=== PATIENT | male | born 1955 | race Caucasian/White ===

== ENCOUNTER 2019-04-20 18:31 | Inpatient (IN) | payer OTHER ==
[~2019-04-20] VITALS: Ht 195.6 cm; Wt 114.0 kg
[2019-04-20 18:52] LABS: HEMATOCRIT 39.6 % (42.0-52.0); HEMOGLOBIN 13.8 g/dl (13.5-18.0); MEAN CELL VOLUME 95 fl (80.0-100.0); MEAN CORPUSCULAR HEMOGLOBIN 33 pg (27.0-31.0); MEAN CORPUSCULAR HGB CONC 35 g/dl (33.0-37.0); MEAN PLATELET VOLUME 11.1 fl (7.4-10.4); PLATELET COUNT 143 K/mm3 (130-400); RED BLOOD COUNT 4.17 M/mm3 (4.20-5.60); REDCELL DISTRIBUTION WIDTH-CV 12.2 % (11.5-14.5)
[2019-04-20 18:59] LABS: ALBUMIN 4.3 gm/dL (3.5-5.0); CALCIUM 8.7 mg/dL (8.4-10.2); CREATININE, serum 0.92 (0.66-1.25); POTASSIUM 4.1 mmol/L (3.4-5.0); TOTAL PROTEIN 8.1 gm/dL (6.4-8.2)
[2019-04-20 19:21] LABS: BAND 3 % (0-10); EOSINOPHIL 4 % (0-4); LYMPHOCYTE 36 % (20.0-51.0); METAMYELOCYTE 1 % (0-0); NEUTROPHILS 47 % (42.0-75.2)
[2019-04-20 19:22] LABS: PLATELET ESTIMATE NORMAL (NORMAL)
[2019-04-20 20:29] LABS: COLLECTION METHOD CLEAN CATCH
[2019-04-20 20:36] LABS: PH 6 (5-8); SQUAMOUS EPITHELIAL 0-2 /hpf; URINE APPEARANCE Clear; URINE BACTERIA Rare /hpf; URINE BILIRUBIN Negative (NEGATIVE); URINE BLOOD 1+ (NEGATIVE); URINE COLOR Yellow; URINE GLUCOSE 1+ (NEGATIVE); URINE KETONE Negative (NEGATIVE); URINE LEUKOCYTE ESTERASE Negative (NEGATIVE); URINE NITRATE Negative (NEGATIVE); URINE PROTEIN(semi-quant) Negative (NEGATIVE); URINE RBC 0-2 /hpf; URINE UROBILINOGEN Negative (NEGATIVE)
[2019-04-20 23:44] VITALS: BP 192/96; PULSE 97; TEMP 97.4
[2019-04-21] VITALS (9 sets, daily range): BP systolic 142–209; BP diastolic 82–102; PULSE 72–116; TEMP 97.4–98.4
--- NOTE | 2019-04-21 00:54 | NUR ---
Patient up to room 324 at 2343. transferred to bed via slidboard. alert and oriented. answers questions appropriately. BP elevated 190/90, retaken manually 142/90. attempted to consult hospitalist. c/o moderate pain 6/10 to back, denies need for pain medication at this time. patient had 50 ml emesis, prn zofran given. IVF infusing into R FA IV. no further needs at this time. will continue to monitor.
[2019-04-21] MEDS ORDERED: ASPIRIN 32325 MG/TAB PO (03:50)
[2019-04-21 04:25] LABS: CALCIUM 8.1 mg/dL (8.4-10.2); CREATININE, serum 0.75 (0.66-1.25); MAGNESIUM 1.4 mg/dL (1.6-2.3); PHOSPHOROUS 3.2 mg/dL (2.5-4.5); POTASSIUM 4.4 mmol/L (3.4-5.0)
[2019-04-21 04:56] LABS: TSH w REFLEX 3.1 uIU/mL (0.465-4.680)
[2019-04-21 07:24] LABS: CALCIUM 7.9 mg/dL (8.4-10.2); CHOLESTEROL RISK RATIO 2.5; CREATININE, serum 0.69 (0.66-1.25); POTASSIUM 4.1 mmol/L (3.4-5.0)
[2019-04-21 07:57] LABS: PATHOLOGY DIFF REVIEW OK
--- NOTE | 2019-04-21 08:21 | NUR ---
Assessment completed, alert/oriented, blood pressure elvated/ VS stable otherwise, he is reporting Nausea/vomitting and moderate low back pain, stated pain meds will make Nausea worse and just wanted Nausea medicaiton for now, I gave 4mg IV Zofran, patient also having visible and significant tremors/ insomnia/ elvated B/P and no appetite, this scored him at a 7 on the ETOH detox protocol, he is voiding urine witout any difficulty, we are giving IVF and replacing eletrolyes, he denies other needs at this time, will continue to monitor
[2019-04-21 09:54] LABS: CALCIUM 7.9 mg/dL (8.4-10.2); CREATININE, serum 0.67 (0.66-1.25); POTASSIUM 4.1 mmol/L (3.4-5.0)
[2019-04-21 11:55] LABS: CREATININE, serum 0.66 (0.66-1.25)
[2019-04-21 13:53] LABS: CALCIUM 7.8 mg/dL (8.4-10.2); CREATININE, serum 0.69 (0.66-1.25)
[2019-04-21 15:16] LABS: CALCIUM 7.9 mg/dL (8.4-10.2); CREATININE, serum 0.66 (0.66-1.25); POTASSIUM 3.7 mmol/L (3.4-5.0)
--- NOTE | 2019-04-21 15:59 | NUR ---
Bulk Delivery Driver met with patient to discuss discharge planning. Patient lives alone in [place]. Patient reports he does not have a current primary care physician but saw Dr. Bobo a few years ago. AISLINN provided list of primary care providers in [place]. Patient obtains medications from [facility] pharmacy. Patient reports he has Medicare although he is showing up as self pay on SW's census. AISLINN consulted Griselda, Financial Counselor who advised she found patient did not have active Medicare coverage. Griselda advised she plans to meet with patient in the morning as patient was asleep when she attempted to meet with him. Patient states he only drinks about 3-4 beers at a time but does not drink every day. Patient states he sometimes goes two weeks without drinking. Patient denies need for AA or treatment. Patient states he has a busted wheelchair at home and was independent with ADLS prior to his fall. Patient does not have DPOA-HC but states he has a sister, Naty (ph#[phone]). AISLINN attended clinical rounds with the team and Hospitalist addressed alcohol use with patient. Patient again states he only has about 3-4 12 oz beers when he drinks but that he can cut back if needed. AISLINN spoke with PT, Elaine who advised at this point she would not recommend home for patient. SW to continue to follow to ensure safe discharge.
[2019-04-21 17:34] LABS: CALCIUM 7.8 mg/dL (8.4-10.2); CREATININE, serum 0.67 (0.66-1.25); POTASSIUM 3.8 mmol/L (3.4-5.0)
--- NOTE | 2019-04-21 19:30 | NUR ---
PATIENT RESTING IN BED DURING CHANGE OF SHIFT REPORT FROM DAY SHIFT NURSE. PATIENT WITH NO C/O OR NEEDS REPORTED.
[2019-04-22] VITALS (12 sets, daily range): BP systolic 115–194; BP diastolic 59–156; PULSE 67–82; TEMP 97.2–99.5
[2019-04-22 01:03] LABS: CREATININE, serum 0.76 (0.66-1.25); POTASSIUM 3.9 mmol/L (3.4-5.0)
--- NOTE | 2019-04-22 01:30 | NUR ---
PATIENT RESTING WITH EYES CLOSED, DOES NOT AWAKEN WHEN DOOR TO ROOM OPENED. BREATHING NONLABORED AND EVEN.
[2019-04-22 06:42] LABS: BASO % 0.8 % (0.0-2.0); EOS # 0.1 (0.0-0.7); EOS % 1.3 % (0-4.0); GRAN % 76.7 % (42.2-75.2); HEMOGLOBIN 12.4 g/dl (13.5-18.0); LYMPH # 0.6 (1.2-3.4); LYMPH % 10.9 % (20.0-51.0); MEAN CELL VOLUME 96 fl (80.0-100.0); MEAN CORPUSCULAR HEMOGLOBIN 33 pg (27.0-31.0); MEAN CORPUSCULAR HGB CONC 34 g/dl (33.0-37.0); MEAN PLATELET VOLUME 11.9 fl (7.4-10.4); MONO # 0.5 (0.1-0.6); MONO % 9.9 % (1.7-9.3); PLATELET COUNT 112 K/mm3 (130-400); RED BLOOD COUNT 3.78 M/mm3 (4.20-5.60); REDCELL DISTRIBUTION WIDTH-CV 12.1 % (11.5-14.5)
[2019-04-22 06:51] LABS: CALCIUM 8.3 mg/dL (8.4-10.2); CREATININE, serum 0.81 (0.66-1.25); POTASSIUM 3.7 mmol/L (3.4-5.0)
[2019-04-22 06:55] LABS: HEMATOCRIT 36.2 % (42.0-52.0)
--- NOTE | 2019-04-22 06:58 | NUR ---
PATIENT RESTING IN BED DURING CHANGE OF SHIFT REPORT GIVEN TO DAY SHIFT NURSE. BED ALARM ON.
--- NOTE | 2019-04-22 09:53 | NUR ---
PT SITTING UP IN BED WATCHING TV. VSS, ASSESSMENTS COMPLETE. HOSPITALIST ROUNDED AND ORDERED CT OF SPINE TO CHECK FOR COMPRESSION FX. PT VERBALIZED UNDERSTANDING.
--- NOTE | 2019-04-22 11:09 | NUR ---
Initial visit; Patient thanked Mapping Technician for looking in on him and offering God's blessings and keeping him in Mapping Technician's prayers.
--- NOTE | 2019-04-22 12:03 | NUR ---
Kitchen Clerk collaborated with Griselda, Financial Counselor who reports she will meet with patient today to apply for Social Security and Medicaid if needed. Griselda advised patient is not showing up as having Medicare. AISLINN met with patient to follow up and discuss PT recommendations. Patient states he wants to wait to hear what the Hospitalist says before making any decisions regarding discharge planning as he had a scan earlier today. Patient states he has Medicare cards at home that he just didn't get a chance to grab as he arrived to hospital via EMS transport. SW offered to contact patient's sister to obtain cards but patient requested SW not call his sister. Patient states he has been on Social Security Disability for 15 years. SW discussed post acute rehab options including SNF, IPR, and Swing Bed. SW attempted to provide Medicare.gov lists of SNFs and IPR units in his area but patient requested SW keep them for now. SW will follow up later this afternoon.
--- NOTE | 2019-04-22 13:58 | NUR ---
PT REFUSING THERAPY, ENCOURAGED PT TO PARTICIPATE, PT REFUSED.
--- NOTE | 2019-04-22 16:28 | NUR ---
HYDROLAZINE EFFECTIVE.
--- NOTE | 2019-04-22 17:02 | NUR ---
In Store Demonstrator collaborated with Griselda, Financial Counselor who advised patient has been drawing Social Security for 15 years but declined Medicare which has resulted in patient having to wait until next enrollment period to access Medicare. Next enrollment period is in November. Griselda advised she will complete Medicaid application with patient. AISLINN met with patient and explained that placement will have to be Medicaid pending and that a CARE assessment is required since Medicaid is payer source. Patient agreed to participate in CARE. SW completed assessment with patient then placed assessment in chart, provided copy to patient, and faxed copy to [facility]. SW spoke with patient about placement options. Patient agreeable to have referrals sent to [facility], [facility], and [facility]. SW advised that other referrals will need to be sent if these three options cannot accept referral. Patient verbalized understanding. SW contacted [facility], [facility], and [facility] then faxed referrals. AISLINN provided update to TRISH Zamudio. AISLINN received confirmation from Griselda that Medicaid application has been completed. SW to continue to follow.
[2019-04-22 23:22] LABS: TRICYCLIC ANTIDEPRESS URINE NEGATIVE
[2019-04-23] VITALS (12 sets, daily range): BP systolic 106–190; BP diastolic 69–121; PULSE 82–165; TEMP 97.7–99
[2019-04-23 07:27] LABS: INR 1.1 (0.8-3.0); PROTHROMBIN TIME 12.3 SECONDS (9.7-12.8)
[2019-04-23 07:29] LABS: PARTIAL THROMBOPLASTIN TIME 28.1 SECONDS (26.0-37.0)
[2019-04-23 07:42] LABS: CALCIUM 8.7 mg/dL (8.4-10.2); CREATININE, serum 0.8 (0.66-1.25); POTASSIUM 3.6 mmol/L (3.4-5.0)
[2019-04-23 07:44] LABS: BASO % 0.5 % (0.0-2.0); EOS % 0.4 % (0-4.0); GRAN % 76.7 % (42.2-75.2); HEMATOCRIT 39.4 % (42.0-52.0); HEMOGLOBIN 13.3 g/dl (13.5-18.0); LYMPH # 0.6 (1.2-3.4); LYMPH % 7.1 % (20.0-51.0); MEAN CELL VOLUME 98 fl (80.0-100.0); MEAN CORPUSCULAR HEMOGLOBIN 33 pg (27.0-31.0); MEAN CORPUSCULAR HGB CONC 34 g/dl (33.0-37.0); MEAN PLATELET VOLUME 12.2 fl (7.4-10.4); MONO # 1.1 (0.1-0.6); MONO % 14.5 % (1.7-9.3); PLATELET COUNT 130 K/mm3 (130-400); RED BLOOD COUNT 4.02 M/mm3 (4.20-5.60); REDCELL DISTRIBUTION WIDTH-CV 12.3 % (11.5-14.5)
--- NOTE | 2019-04-23 08:00 | NUR ---
Having tremors and hallucinations. Repeatedly put legs out of bed. Denies back pain except when repositioned in bed. Medicated per detox protocol.
--- NOTE | 2019-04-23 18:00 | NUR ---
Medicated every two hours per alcohol detox protocol. Remains shaky. Drowsy at times in afternoon. Took po fluids poorly.
[2019-04-24] VITALS (13 sets, daily range): BP systolic 110–156; BP diastolic 62–87; PULSE 60–79; TEMP 97.3–98.7
--- NOTE | 2019-04-24 04:55 | NUR ---
PT IN BED. HE HAS SLEPT APPROX. 1-2 HOURS. OTHERWISE PT HAS BEEN VERY RESTLESS, DISORIENTED, TREMULOUS. . PT HAS BEEN MEDICATED WITH ATIVAN Q 2 HOURS PER DETOX PROTOCOL.
--- NOTE | 2019-04-24 18:00 | NUR ---
Lethargic today. Will wake up briefly and take po fluids when assisted. Hands shaky. Took meds crushed in applesauce or pudding. Answers questions appropriately. No c/o back pain.
[2019-04-25] VITALS (11 sets, daily range): BP systolic 95–184; BP diastolic 49–94; PULSE 57–76; TEMP 97.2–98.6
--- NOTE | 2019-04-25 04:54 | NUR ---
PT HAS RESTED MORE PEACEFULLY TONIGHT. LESS TREMORS. ALCOHOL DETOX SCORES HAVE BEEN LOWER. PT HAS HAD SEVERAL BRIEF CONVERSATIONS THAT WERE COMPREHENDABLE AND APPROPRIATE.
[2019-04-25 08:54] LABS: BASO % 0.6 % (0.0-2.0); EOS # 0.2 (0.0-0.7); GRAN # 3.1 (1.4-6.5); HEMATOCRIT 38.8 % (42.0-52.0); LYMPH # 0.8 (1.2-3.4); LYMPH % 15.5 % (20.0-51.0); MEAN CELL VOLUME 100 fl (80.0-100.0); MEAN CORPUSCULAR HEMOGLOBIN 33 pg (27.0-31.0); MEAN CORPUSCULAR HGB CONC 34 g/dl (33.0-37.0); MEAN PLATELET VOLUME 11.1 fl (7.4-10.4); MONO # 0.9 (0.1-0.6); MONO % 17.5 % (1.7-9.3); PLATELET COUNT 118 K/mm3 (130-400); RED BLOOD COUNT 3.89 M/mm3 (4.20-5.60); REDCELL DISTRIBUTION WIDTH-CV 12.4 % (11.5-14.5)
[2019-04-25 09:01] LABS: CALCIUM 9.1 mg/dL (8.4-10.2); CREATININE, serum 0.97 (0.66-1.25); POTASSIUM 3.6 mmol/L (3.4-5.0)
--- NOTE | 2019-04-25 09:12 | NUR ---
Ashwni, at [facility], reports that they are unable to accept the patient.
--- NOTE | 2019-04-25 11:42 | NUR ---
First visit from the manufacturing executive. No needs right now.
--- NOTE | 2019-04-25 13:49 | NUR ---
AGREE WITH STUDENTS ASSESSMENTS THIS SHIFT. PT SLEEPING IN BED DID NOT EAT LUNCH OR SNACK.
--- NOTE | 2019-04-25 16:34 | NUR ---
Lis, at [facility], reports that their servicenow administrator plans to come up tomorrow to screen the patient. SW to update the patient. Ko, at [facility], reports that they are still reviewing the referral. SW to continue to follow.
--- NOTE | 2019-04-25 17:11 | NUR ---
PT RESTING QUIETLY WITH SCHEDULED MEDS.
--- NOTE | 2019-04-25 19:01 | NUR ---
REPORT TO CINDI BOLTON.
[2019-04-26] VITALS (10 sets, daily range): BP systolic 127–176; BP diastolic 61–89; PULSE 68–91; TEMP 97.5–99.1
--- NOTE | 2019-04-26 03:01 | NUR ---
Patient has rested well throughout the night. Denies pain. Noted to score a 3 on detox protocol throughout the night. PRN Hydralazine given for SBP over 170. Patient compliant with cares and appropriate with staff. Utilizes urinal for voiding. No other PRN medication given. Will continue to monitor patient.
[2019-04-26 07:26] LABS: BASO % 0.7 % (0.0-2.0); EOS # 0.1 (0.0-0.7); EOS % 3.1 % (0-4.0); GRAN # 2.8 (1.4-6.5); GRAN % 62.7 % (42.2-75.2); HEMATOCRIT 37.3 % (42.0-52.0); HEMOGLOBIN 12.6 g/dl (13.5-18.0); LYMPH # 0.7 (1.2-3.4); LYMPH % 15.7 % (20.0-51.0); MEAN CELL VOLUME 98 fl (80.0-100.0); MEAN CORPUSCULAR HEMOGLOBIN 33 pg (27.0-31.0); MEAN CORPUSCULAR HGB CONC 34 g/dl (33.0-37.0); MEAN PLATELET VOLUME 11.6 fl (7.4-10.4); MONO # 0.8 (0.1-0.6); MONO % 17.1 % (1.7-9.3); PLATELET COUNT 104 K/mm3 (130-400); RED BLOOD COUNT 3.82 M/mm3 (4.20-5.60); REDCELL DISTRIBUTION WIDTH-CV 12.5 % (11.5-14.5)
[2019-04-26 07:28] LABS: CALCIUM 9.1 mg/dL (8.4-10.2); CREATININE, serum 0.96 (0.66-1.25)
--- NOTE | 2019-04-26 12:00 | NUR ---
Patient has been resting comfortably most the morning. Denies nausea and pain. He is alert and partially oriented. His BP was high once this morning, Dr Ding aware. But it is better now. He has been getting up to the chair for meals. Offered him a shower twice this morning but he just wanted the wipes. Explained that he might feel better after a shower. No other changes at this time. Call light within reach.
--- NOTE | 2019-04-26 15:25 | NUR ---
Deidre, configuration management administrator at [facility], came to screen the patient. Deidre requested updates and a copy of the patient's CARE Assessment. AISLINN provided Deidre with the updates and a copy of the CARE Assessment. Deidre reports that she needs to bring the updates to her team and to discuss the screen with them and will then get back to AISLINN with their answer. She states that if able to accept, then may tentatively be able to accept the patient tomorrow. AISLINN notified the clinical team. AISLINN to continue to follow.
--- NOTE | 2019-04-26 18:30 | NUR ---
Patient has been doing very well this afternoon. Alchol detox protocol discontinued. Patient has not scored high enough to require ativan for over 24hrs. Patient denies pain. He was screened by [facility] but no answer on acceptance. No other changes at this time. Call light within reach.
[2019-04-27 00:51] VITALS: BP 172/85; PULSE 70; TEMP 98.1
--- NOTE | 2019-04-27 01:03 | NUR ---
Patient has rested well throughout the night. Denies pain. Refuses to shower for staff. Compliant with cares. INT to right forearm. Patient states he wants it to come out. Education provided on the importance of leaving it in until he is discharged. Patient needs to be reminded of this frequently. Takes medications whole. Denies any further needs. Will continue to monitor.
[2019-04-27 04:56] VITALS: BP 181/86; PULSE 71; TEMP 98.3
--- NOTE | 2019-04-27 07:05 | NUR ---
up in chair and ready for breakfast, bedside shift report received HOANG Gonzalez
[2019-04-27 07:36] VITALS: BP 140/65; PULSE 92; TEMP 97.5
--- NOTE | 2019-04-27 08:20 | NUR ---
remains up in chair after having had breakfast, states only has minimal pain/discomfort to back at this time, full assessment completed, see interventions for further info, denies needs at this time
--- NOTE | 2019-04-27 08:30 | NUR ---
his lower extremities are purplish in color and this is reported to Dr Ding who states they were like this yesterday
--- NOTE | 2019-04-27 10:58 | NUR ---
up and ambulated in [place] with physical therapy, then back to room and into bed to rest
--- NOTE | 2019-04-27 11:48 | NUR ---
Ko, at [facility] [place], reports that they are unable to accept the patient. Deidre, at [facility] [place], reports that they would need further information and supporting documentation; such as bank statements for the patient's Medicaid application. AISLINN met with the patient to update and inform. The patient contacted his bank to request for statements. His bank informed him that he is the only one that would be able to curing pickling packer the bank statements from them or that they could mail it to his home. The patient reports that he does not have any friends that would be able to curing pickling packer his mail and he states that he has not spoken to his sister, Naty, in fifteen years and does not want to involve her. The patient then informed AISLINN that he does not want to go to [facility] or any other facility out of [place]. He only wants to stay in [place] and would rather return home. AISLINN collaborated with PT. PT worked with the patient and they are now recommending home with outpatient PT. AISLINN to follow up with the patient about outpatient PT and a FWW. AISLINN to continue to follow.
[2019-04-27 12:08] VITALS: BP 133/67; PULSE 66; TEMP 97.7
[2019-04-27] MEDS ORDERED: CATAPRES 0.1MG0.1 MG PO (12:23)
[2019-04-27] MEDS ORDERED: INDERAL 20MG20 MG PO (12:23)
[2019-04-27] MEDS ORDERED: ZESTRIL 20MG TA20 MG PO (12:24)
[2019-04-27] MEDS ORDERED: FOLIC ACID 11 MG/TA1 PO (12:24)
[2019-04-27] MEDS ORDERED: THIAMINE 1100 MG/TAB PO (12:24)
[2019-04-27] MEDS ORDERED: DUO-KAPS1 CAP PO (12:25)
--- NOTE | 2019-04-27 12:28 | NUR ---
had lunch and now appears to be resting in bed
--- NOTE | 2019-04-27 12:55 | NUR ---
Dr Ding in to see patient
--- NOTE | 2019-04-27 13:05 | NUR ---
report given to HOANG Rendon
--- NOTE | 2019-04-27 13:36 | NUR ---
Report received on patient, patient laying in bed upon entry. Assisted to the restroom with SBA and use of a walker. Denies any pain or concerns at this time.
[2019-04-27 14:14] VITALS: BP 158/79; PULSE 69
--- NOTE | 2019-04-27 16:42 | NUR ---
Discharge paperwork and instructions reviewed with patient. All questions answered at this time. IV to RFA dc'd catheter tip intact. Pt's walker with patient. Awaiting taxi at this time.
--- NOTE | 2019-04-27 17:01 | NUR ---
Pt wheeled out of facility at this time.
--- NOTE | 2019-04-27 17:20 | NUR ---
AISLINN met with the patient to follow up about a FWW, outpatient PT/OT, and a PCP. The patient was interested in getting a FWW. The patient is self pay. AISLINN presented and explained the Patient Choice Form for DME to the patient. The patient chose [facility], due to being self pay and and them having the hardship program. AISLINN contacted and faxed the FWW order and his financial assistance application to Aracely at [facility]. [facility] delivered the FWW to the patient's room. The patient reports that he is open to outpatient PT/OT, but he did not want SW to set up an appointment at this time. He states that he would like to set up an appointment when he gets home. AISLINN provided the patient with a list of the different therapy centers in [place]. AISLINN discussed primary care and [facility]. The patient reports that he wanted to get set up with Dr. Martinez, but that Dr. Martinez is not taking any new patients at this time. He states that he would still prefer to get set up with a doctor at Dr. Martinez's clinic. The patient was secured an appointment with Dr. Dwight Crow on 05/04. AISLINN also priced the patient's meds at his preferred pharmacy, [facility]. The total was $84.27 for four of the five medications that he was prescribed. [facility] needed to order the Thiamine. AISLINN informed the patient. The patient reports that he would be able to pay for this. The patient was in need of transport back home. AISLINN provided the patient and his RN with a taxi voucher. The patient discharged back home today, 04/26. AISLINN made an APS report due to concerns. APS intake ID#[id number] No additional needs at this time.
== END 2019-04-27 17:01 | disposition home or self-care (01) | DRG 897 ==
LOC: COL.ER 18:31 → SURG 22:48
PROVIDERS: Family Medicine; Nurse Practitioner Family; Physician Assistant; ADMIT Surgery
DX: F10.231 Alcohol dependence with withdrawal delirium (principal); E87.1 Hypo-osmolality and hyponatremia; E87.2 Acidosis; H91.90 Unspecified hearing loss, unspecified ear; G62.9 Polyneuropathy, unspecified; I16.0 Hypertensive urgency; M54.9 Dorsalgia, unspecified; E66.9 Obesity, unspecified; W19.XXXA Unspecified fall, initial encounter; R74.0 Nonspecific elevation of levels of transaminase and lactic acid dehydrogenase [LDH]; E87.8 Other disorders of electrolyte and fluid balance, not elsewhere classified; Y90.8 Blood alcohol level of 240 mg/100 ml or more; Z86.73 Personal history of transient ischemic attack (TIA), and cerebral infarction without residual deficits
CPT/HCPCS: OP; 99223; 99231-AI; 99232-AI; 99233-AI; 99239; G0378; J0360; J1630; J1650; J1885; J2060; J2270; J2405; J3411; J7030